=== PATIENT | female | born 1950 | race Caucasian/White ===

== ENCOUNTER 2020-07-13 10:18 | Emergency (ER) | payer SELFPAY ==
[~2020-07-13] VITALS: Ht 157.5 cm; Wt 61.0 kg
[2020-07-13] MEDS ORDERED: ACET-2708 MT (12:49)
[2020-07-13] MEDS ORDERED: ACETAMINOPHEN 325MG TABLET PO ONE (13:00)
[2020-07-13 13:25] VITALS: BP 163/93
== END 2020-07-13 13:28 | disposition home or self-care (01) ==
LOC: ER 10:18
DX: M54.2 Cervicalgia (principal); I10 Essential (primary) hypertension
CPT/HCPCS: 93005; 99283; Z7610